=== PATIENT | female | born 1980 | race Two or more races ===

== ENCOUNTER 2021-04-15 22:33 | Emergency (ER) | payer OTHER ==
[~2021-04-15] VITALS: Ht 160 cm; Wt 86.2 kg
[2021-04-16] MEDS ORDERED: PEPCID AC20 MG PO (02:53)
[2021-04-16] MEDS ORDERED: NORFLEX100MG PO (02:53)
[2021-04-16] MEDS ORDERED: KETO10TA2 PO (02:53)
[2021-04-16] MEDS ORDERED: MEDROLPACK PO (02:53)
[2021-04-16] MEDS ORDERED: PROTONIX20 MG PO (02:53)
[2021-04-20] MEDS ORDERED: ACETAMINOPHEN650 M2 (07:41)
== END 2021-04-16 05:42 | disposition home or self-care (01) ==
LOC: ER 22:33
DX: M54.5 Low back pain (principal); M79.651 Pain in right thigh

== ENCOUNTER 2021-10-22 10:36 | Emergency (ER) | payer OTHER ==
[~2021-10-22] VITALS: Ht 160 cm; Wt 94.8 kg
[~2021-10-22 10:36] MED LIST: ACETAMINOPHEN650 M2; KETO10TA2 PO; MEDROLPACK PO; NORFLEX100MG PO; PEPCID AC20 MG PO; PROTONIX20 MG PO
[2021-10-22] MEDS ORDERED: ACID REDUCER20 M1 PO (10:48)
== END 2021-10-22 15:18 ==
LOC: ER 10:36
DX: A49.3 Mycoplasma infection, unspecified site (principal); Z20.822 Contact with and (suspected) exposure to COVID-19

== ENCOUNTER 2024-08-24 12:11 | Emergency (ER) | payer OTHER ==
[~2024-08-24] VITALS: Ht 157.5 cm; Wt 104.3 kg
[~2024-08-24 12:11] MED LIST changes: +ACID REDUCER20 M1 PO
[2024-08-24] MEDS ORDERED: ACETAMINOPHEN500 M1 PO (18:20)
[2024-08-24] MEDS ORDERED: ZITHROMAX TRI-500 MG PO (18:20)
[2024-08-24] MEDS ORDERED: GILTUSS COUGH-118 M1 PO (18:20)
== END 2024-08-24 18:56 | disposition home or self-care (01) ==
LOC: ER 12:12
DX: R53.81 Other malaise (principal); J06.9 Acute upper respiratory infection, unspecified; Z20.822 Contact with and (suspected) exposure to COVID-19